=== PATIENT | female | born 1980 | race Caucasian/White ===

== ENCOUNTER 2016-10-14 14:02 | Emergency (ER) | payer OTHER ==
[~2016-10-14] VITALS: Ht 157.5 cm; Wt 86.2 kg
[~2016-10-14 14:02] MED LIST: AMBIEN5 MG PO; CITALOPRAM HBR40 MG PO; EFFEXOR37.5 MG PO; KLONOPIN0.5 M1 PO; XANAX0.5 MG PO
[2016-10-14] MEDS ORDERED: ZOFRAN ODT4 MG PO (14:48)
[2016-10-14] MEDS ORDERED: NORCO 5/3251 TABLET PO (14:48)
[2016-10-14 14:58] VITALS: BP 113/84
== END 2016-10-14 14:59 | disposition home or self-care (01) ==
LOC: EME 14:02
DX: M27.3 Alveolitis of jaws (principal); R11.0 Nausea; Z98.818 Other dental procedure status; Z87.891 Personal history of nicotine dependence
CPT/HCPCS: 99281; 99283

== ENCOUNTER 2017-07-19 08:55 | Inpatient (IN) | payer OTHER ==
[~2017-07-19] VITALS: Ht 157.5 cm; Wt 78.2 kg
[~2017-07-19 08:55] MED LIST changes: +AMBIEN10 MG PO; -AMBIEN5 MG PO; +NORCO 5/3251 TABLET PO; +ZOFRAN ODT4 MG PO
[2017-07-19 09:46] LABS: SERUM ETHYL ALCOHOL 84 mg/dL
[2017-07-19 09:50] LABS: ACETAMINOPHEN (TYLENOL) < 10 mcg/mL (10-30); SALICYLATE < 5.0 MG/DL (15-30)
[2017-07-19 09:56] LABS: QUANTITATIVE HCG < 4.0 MIU/ML
[2017-07-19 10:23] LABS: APPEARANCE CLEAR ((CLEAR)); BILIRUBIN NEGATIVE; BLOOD SMALL; COLOR YELLOW ((YELLOW)); GLUCOSE (STRIP) NEGATIVE; KETONES NEGATIVE; LEUKOCYTES NEGATIVE; NITRITE NEGATIVE; PROTEIN (STRIP) NEGATIVE; SPECIFIC GRAVITY 1.006 (1.000-1.030); UROBILINOGEN 0.2 MG/DL (0.2-1.0)
[2017-07-19 10:38] LABS: AMPHETAMINE NEGATIVE (500 ng/mL); BACTERIA RARE /HPF; BARBITURATES NEGATIVE (200 ng/mL); BENZODIAZEPINES PRESUMPTIVE POSITIVE (150 ng/mL); BUPRENORPHINE NEGATIVE (10 ng/mL); COCAINE NEGATIVE (150 ng/mL); EPITHELIAL CELLS RARE /HPF; METHADONE NEGATIVE (200 ng/mL); METHAMPHETAMINE NEGATIVE (500 ng/mL); MUCUS TRACE /LPF; OPIATES (MORPHINE) NEGATIVE (100 ng/mL); OXYCODONE NEGATIVE (100 ng/mL); PHENCYCLIDINE NEGATIVE (25 ng/mL); PROPOXYPHENE NEGATIVE (300 ng/mL); RED BLOOD CELLS 0-5 /HPF (0-5); THC CANNABINOIDS NEGATIVE (50 ng/mL); TRICYCLIC ANTIDEPRESSANTS NEGATIVE (300 ng/mL); UCUL ADDED? NO; WHITE BLOOD CELLS 0-5 /HPF (0-5)
[2017-07-19 11:18] LABS: BENZODIAZEPINES, URINE SCREEN POSITIVE (200 ng/mL)
[2017-07-19] MEDS ORDERED: ZICAM (16:44)
[2017-07-19 17:33] VITALS: BP 124/79
[2017-07-20 07:34] VITALS: BP 114/63
[2017-07-20 15:31] VITALS: BP 104/69
[2017-07-21 07:47] VITALS: BP 118/73
== END 2017-07-21 11:40 | disposition home or self-care (01) | DRG 881 ==
LOC: EME 08:55 → 1WEST 14:32 → EDOF 14:32 → ENRESERV 15:27 → 1WEST 16:55
PROVIDERS: Nurse Practitioner Family
DX: F32.9 Major depressive disorder, single episode, unspecified (principal); F10.120 Alcohol abuse with intoxication, uncomplicated; Y90.4 Blood alcohol level of 80-99 mg/100 ml; T42.4X2A Poisoning by benzodiazepines, intentional self-harm, initial encounter; F17.200 Nicotine dependence, unspecified, uncomplicated; F41.8 Other specified anxiety disorders
CPT/HCPCS: 81003; 84702; 84999; 90837; 93005; 97150 GO; 97165 GO; G0480; Q0177